=== PATIENT | female | born 1940 | race Caucasian/White ===

== ENCOUNTER → 2024-12-18 | Outpatient (REF) | payer OTHER ==
[2024-12-18 18:17] LABS: ALT/SGPT 20.0 U/L (7.0-40); AST/SGOT 23.0 U/L (<34); BASO # 0.1 10^3/uL (0.0-0.2); BASO % 1.0 % (0.0-1.0); CALCIUM LEVEL 9.2 MG/DL (8.3-10.6); CARBON DIOXIDE LEVEL 30.0 MMOL/L (20-31); CHLORIDE LEVEL 105.0 MMOL/L (98-107); CHOLESTEROL LEVEL 146.0 MG/DL (<200); CHOLESTEROL RISK RATIO 2.77 (<5); CREATININE FOR GFR 0.87 MG/DL (0.55-1.30); EOS # 0.3 10^3/uL (0.0-0.5); EOS % 4.7 % (0.0-3.0); FREE T4 1.11 NG/DL (0.89-1.76); GLOMERULAR FILTRATION RATE 65.3 (>32); LDL CHOLESTEROL 74.9 MG/DL (<100); LYMPH # 1.7 10^3/uL (1.5-5.0); LYMPH % 28.5 % (24.0-44.0); MONO # 0.8 10^3/uL (0.0-0.8); MONO % 13.0 % (2.0-8.0); NEUTROPHILS # 3.1 10^3/uL (1.5-8.5); NEUTROPHILS % 52.5 % (36.0-66.0); NON-HDL-C 93.3 MG/DL; PLATELET COUNT, AUTOMATED 259 10^3/uL (150-450); POTASSIUM SERUM 3.9 MMOL/L (3.5-5.1); SODIUM LEVEL 144.0 MMOL/L (136-145); TRIGLYCERIDES LEVEL 92.0 MG/DL (<150)
== END ==
LOC: M SFHCCAPE 10:53
PROVIDERS: ATTEND Physician Assistant Medical
DX: K21.9 Gastro-esophageal reflux disease without esophagitis (principal); F41.9 Anxiety disorder, unspecified; I10 Essential (primary) hypertension; F03.90 Unspecified dementia, unspecified severity, without behavioral disturbance, psychotic disturbance, mood disturbance, and anxiety; E78.5 Hyperlipidemia, unspecified